=== PATIENT | female | born 1980 | race Caucasian/White ===

== ENCOUNTER 2021-05-09 11:55 | Emergency (ER) | payer BC ==
[2021-05-09 12:42] LABS: HEMOGLOBIN 13.8 gm/dl (12.3-15.3); RED BLOOD COUNT 4.67 M/UL (4.00-5.10); WHITE BLOOD COUNT 13.3 K/UL (4.5-11.0)
[2021-05-09 13:09] LABS: BUN/CREATININE RATIO 11 (0-10)
[2021-05-09] MEDS ORDERED: TORADOL 10 MG T10 MG PO (14:14)
[2021-05-09] MEDS ORDERED: ZOFRAN4 MG PO (14:14)
[2021-05-09] MEDS ORDERED: FLOMAX0.4 MG PO (14:15)
== END 2021-05-09 14:25 | disposition home or self-care (01) ==
LOC: ER1 11:55
PROVIDERS: Family Medicine
DX: N13.2 Hydronephrosis with renal and ureteral calculous obstruction (principal); Z90.710 Acquired absence of both cervix and uterus; Z90.89 Acquired absence of other organs; Z88.8 Allergy status to other drugs, medicaments and biological substances
CPT/HCPCS: 80053; 81001; 82150; 83690; 85025; 96374; 99284; J1885